=== PATIENT | female | born 1985 | race Caucasian/White ===

== ENCOUNTER 2018-01-18 21:05 | Emergency (ER) | payer MEDICAID ==
[~2018-01-18] VITALS: Ht 157.5 cm; Wt 73.5 kg
[2018-01-18] MEDS ORDERED: predniSONE 20 MG TABLET ONE (21:29)
[2018-01-18] MEDS ORDERED: IPRATROPIUM BROMIDE 0.5 MG/2.5 ML NEBU NEB ONE (21:30)
[2018-01-18] MEDS ORDERED: ALBUTEROL SULFATE 2.5 MG/3 ML NEBU NEB ONE (21:30)
[2018-01-18] MEDS ORDERED: predniSONE 20 MG TABLET PO ONE (21:30)
[2018-01-18] MEDS ORDERED: IPRATROPIUM BROMIDE 0.5 MG/2.5 ML NEBU ONE (21:34)
[2018-01-18] MEDS ORDERED: ALBUTEROL SULFATE 2.5 MG/3 ML NEBU ONE (21:34)
--- NOTE | 2018-01-18 21:36 | NUR ---
C/O SOB X 3 WEEKS. DENIES ANY CP,BAJWA,N/V,DIZZINESS. A&OX4. ABLE TO FOLLOW COMMANDS & SPEAK IN FULL SENTENCES/ SPEECH CLEAR. RESPIRATIONS EVEN & UNLABORED W/ NO AMU. STATES HAS HAD SOB & TODAY WORSE. WHEEZES NOTED THROUGHOUT. WILL CONTINUE TO MONITOR.
--- NOTE | 2018-01-18 21:38 | NUR ---
HHN TX GIVEN BY RT NOT RN. SIGNED BY RN IN ERROR.
--- NOTE | 2018-01-18 22:10 | NUR ---
BS CLEAR & NO MEOR WHEEZES NOTED AFTER HHN TX. DENIES ANY CP,SOB,BAJWA,NV,DIZZINESS. READY FOR DISHARGE. DISPO HOME W/ POST CARE,HOME CARE, FOLLOW U CARE INSTRUCTIONS. AMBULATING W/ STEADY GAIT.
[2018-01-18 22:38] VITALS: BP 150/100
== END 2018-01-18 22:39 | disposition home or self-care (01) ==
LOC: ER 21:11
DX: J20.9 Acute bronchitis, unspecified (principal); I10 Essential (primary) hypertension; J45.909 Unspecified asthma, uncomplicated; Z91.048 Other nonmedicinal substance allergy status
CPT/HCPCS: 94640; 99283; J7512; A4663; J3590

== ENCOUNTER 2020-03-16 13:16 | Emergency (ER) | payer SELFPAY ==
--- NOTE | 2020-03-16 13:43 | NUR ---
[facility]BT [id number], CALLED 3 TIMES, NO ANSWER
== END 2020-03-16 13:43 | disposition left against medical advice (07) ==
LOC: ER 13:16
DX: Z75.3 Unavailability and inaccessibility of health-care facilities (principal)

== ENCOUNTER 2020-07-04 00:27 | Emergency (ER) | payer OTHER ==
[~2020-07-04] VITALS: Ht 157.5 cm; Wt 79.4 kg
[2020-07-04] MEDS ORDERED: HYDR-3980 PO (00:42)
[2020-07-04] MEDS ORDERED: HYDROCODONE/APAP 10-325 MG TABLET PO ONE (00:45)
--- NOTE | 2020-07-04 00:48 | NUR ---
Patient discharged to home in stable condition. Written and verbal after care instructions given. Patient verbalizes understanding of instructions. Stressed follow up or return to ER for worsening s/s. Patient ambulated with steady gait.
[2020-07-04 00:50] VITALS: BP 178/116
[2020-07-04] MEDS ORDERED: HYDROCODONE/APAP 10-325 MG TABLET ONE (00:52)
== END 2020-07-04 00:50 | disposition home or self-care (01) ==
LOC: ER 00:37
DX: G56.01 Carpal tunnel syndrome, right upper limb (principal); J45.909 Unspecified asthma, uncomplicated; I10 Essential (primary) hypertension
CPT/HCPCS: A4663

== ENCOUNTER 2021-05-17 05:32 | Emergency (ER) | payer MEDICAID, OTHER ==
[~2021-05-17] VITALS: Ht 154.9 cm; Wt 77.1 kg
[~2021-05-17 05:32] MED LIST: HYDR-3980 PO
--- NOTE | 2021-05-17 05:44 | NUR ---
pt c/o increasing right hand pain that is chronic per pt.
[2021-05-17] MEDS ORDERED: HYDR-4209 PO (06:10)
[2021-05-17] MEDS ORDERED: HYDROCODONE/APAP 10-325 MG TABLET PO ONE (06:15)
[2021-05-17] MEDS ORDERED: ONDANSETRON ODT 4 MG TAB.RAPDIS SL ONE (06:15)
[2021-05-17] MEDS ORDERED: HYDROCODONE/APAP 10-325 MG TABLET ONE (06:21)
[2021-05-17] MEDS ORDERED: ONDANSETRON ODT 4 MG TAB.RAPDIS ONE (06:22)
[2021-05-17 06:31] VITALS: BP 130/80
--- NOTE | 2021-05-17 06:31 | NUR ---
Patient discharged to home in stable condition. Written and verbal after care instructions given. Patient verbalizes understanding of instructions. Stressed follow up or return to ER for worsening s/s.
== END 2021-05-17 06:32 | disposition home or self-care (01) ==
LOC: ER 05:42
DX: G56.01 Carpal tunnel syndrome, right upper limb (principal); I10 Essential (primary) hypertension; J45.909 Unspecified asthma, uncomplicated
CPT/HCPCS: A4663; Q0162

== ENCOUNTER 2021-12-17 05:47 | Emergency (ER) | payer OTHER ==
[~2021-12-17] VITALS: Ht 157.5 cm; Wt 74.8 kg
[~2021-12-17 05:47] MED LIST changes: +HYDR-4209 PO
--- NOTE | 2021-12-17 06:04 | NUR ---
Dr. Nesbitt at bedside. MSE in progress.
[2021-12-17] MEDS ORDERED: ALBU8.5H8 IH (06:09)
[2021-12-17] MEDS ORDERED: PRED20TA PO (06:09)
[2021-12-17] MEDS ORDERED: predniSONE 10 MG TABLET ONE (06:15)
[2021-12-17] MEDS ORDERED: predniSONE 20 MG TABLET PO ONE (06:15)
[2021-12-17] MEDS ORDERED: predniSONE 50 MG TABLET ONE (06:15)
--- NOTE | 2021-12-17 06:22 | NUR ---
Patient discharged to home in stable condition. A/O x 4. NAD noted. All belongings with patient. Written and verbal after care instructions given. Patient verbalizes understanding of instructions. Stressed follow up or return to ER for worsening s/s.
[2021-12-17 06:28] VITALS: BP 130/86
== END 2021-12-17 06:22 | disposition home or self-care (01) ==
LOC: ER 05:55
DX: J45.901 Unspecified asthma with (acute) exacerbation (principal); J02.9 Acute pharyngitis, unspecified
CPT/HCPCS: 99283; J7512 ×2; A4663

== ENCOUNTER 2023-08-21 10:22 | Emergency (ER) | payer OTHER ==
[~2023-08-21] VITALS: Ht 157.5 cm; Wt 79.4 kg
[~2023-08-21 10:22] MED LIST changes: +ALBU8.5H8 IH; +PRED20TA PO
[2023-08-21 11:10] VITALS: BP 133/75; TEMP 98.3; O2SAT 98
== END 2023-08-21 11:34 | disposition home or self-care (01) ==
LOC: ER 10:22
DX: S61.412D Laceration without foreign body of left hand, subsequent encounter (principal); F17.200 Nicotine dependence, unspecified, uncomplicated; J45.909 Unspecified asthma, uncomplicated; I10 Essential (primary) hypertension; Z79.899 Other long term (current) drug therapy; X58.XXXD Exposure to other specified factors, subsequent encounter
CPT/HCPCS: A4606; A4663